=== PATIENT | male | born 1975 | race Caucasian/White ===

== ENCOUNTER 2020-12-01 22:46 | Emergency (ER) | payer BC ==
[~2020-12-01] VITALS: Ht 182.9 cm; Wt 81.8 kg
[2020-12-02] MEDS ORDERED: ketorolac trometh. 30mg/ml inj. IM ONE (00:05)
[2020-12-02] MEDS ORDERED: normal saline 1000ml 1,000 ML IV ONE (00:35)
[2020-12-02] MEDS ORDERED: proCHLORperazine 10 MG/2 ml inj IV ONE (00:35)
[2020-12-02] MEDS ORDERED: diphenhydrAMINE 50 mg/ml inj IV ONE (00:35)
[2020-12-02 01:26] LABS: ALBUMIN 3.1 G/DL (3.4-5.0); ANION GAP 7 (8-16); BLOOD UREA NITROGEN 6 MG/DL (7-18); BUN/CREATININE RATIO 6.7 (5.4-32.0); CALCIUM 7.6 MG/DL (8.5-10.1); CHLORIDE 98 MMOL/L (99-107); GLUCOSE 104 MG/DL (70-104); POTASSIUM 3.7 MMOL/L (3.5-5.1); SODIUM 133 MMOL/L (135-145); TOTAL CARBON DIOXIDE 27.9 MMOL/L (24-32); eGFR 90 ML/MIN
[2020-12-02 01:34] LABS: BASOPHILS % (AUTO) 0.3 % (0-1); EOSINOPHILS % (AUTO) 0 % (0-6); HEMATOCRIT 41.3 % (42.0-52.0); HEMOGLOBIN 14.6 g/dl (14.0-17.9); LYMPHOCYTES # (AUTO) 0.4 X10'3 (1.1-4.8); LYMPHOCYTES % (AUTO) 7.6 % (21-51); MEAN CORPUSCULAR HEMOGLOBIN 30.1 PG (27.0-31.0); MEAN CORPUSCULAR HGB CONC 35.3 g/dL (33.0-36.5); MEAN CORPUSCULAR VOLUME 85.2 FL (78-98); MEAN PLATELET VOLUME 8.5 FL (7.4-10.4); MONOCYTES # (AUTO) 0.4 X10'3 (0-0.9); MONOCYTES % (AUTO) 6.7 % (2-12); NEUTROPHILS # (AUTO) 4.7 X10'3 (1.8-7.7); NEUTROPHILS % (AUTO) 85.4 % (42-75); PLATELET COUNT 134 X10'3 (140-440); RED BLOOD COUNT 4.84 X10'6 (4.70-6.10); RED CELL DISTRIBUTION WIDTH 12.9 % (11.5-14.5); WHITE BLOOD COUNT 5.5 X10'3 (4.5-11.0)
[2020-12-02] MEDS ORDERED: PROC-8 PO ×2 (01:55)
[2020-12-02 02:05] VITALS: BP 118/76
--- NOTE | 2020-12-02 02:05 | NUR ---
patients states he feels alot better, fever down to 99.1. patient was given dc instructions and rx instructions and acknowledged understanding. patient dc home with family.
[2020-12-03] MEDS ORDERED: NO HOME MEDS (15:08)
[2020-12-03] MEDS ORDERED: PROC10TA10 PO (15:12)
== END 2020-12-02 02:06 | disposition home or self-care (01) ==
LOC: ER 22:48
DX: U07.1 COVID-19 (principal); R11.2 Nausea with vomiting, unspecified; R45.851 Suicidal ideations; F32.9 Major depressive disorder, single episode, unspecified
CPT/HCPCS: 36415; 71045; 80048; 85025; 87635; 96372; 96374; 96375; 99284; C9803; J0780; J1200; J1885; J7030

== ENCOUNTER 2020-12-03 11:45 | Inpatient (IN) | payer BC ==
[~2020-12-03] VITALS: Ht 182.9 cm; Wt 81.8 kg
[~2020-12-03 11:45] MED LIST: PROC-8 PO
[2020-12-03] MEDS ORDERED: dexamethasone sod phosphate 10mg/ml inj IV STA (12:32)
[2020-12-03] MEDS ORDERED: normal saline 1000ml 1,000 ML IV ONE (12:35)
[2020-12-03] MEDS ORDERED: REMDESIVIR (EUA) 100mg inj. 200 MG in normal saline 100ml IV soln 60 ML IV ONE (12:50)
[2020-12-03 13:09] LABS: BASOPHILS % (AUTO) 0.1 % (0-1); EOSINOPHILS % (AUTO) 0 % (0-6); HEMATOCRIT 40.9 % (42.0-52.0); HEMOGLOBIN 14.4 g/dl (14.0-17.9); LYMPHOCYTES # (AUTO) 0.3 X10'3 (1.1-4.8); LYMPHOCYTES % (AUTO) 3.8 % (21-51); MEAN CORPUSCULAR HEMOGLOBIN 30.1 PG (27.0-31.0); MEAN CORPUSCULAR HGB CONC 35.2 g/dL (33.0-36.5); MEAN CORPUSCULAR VOLUME 85.5 FL (78-98); MEAN PLATELET VOLUME 7.8 FL (7.4-10.4); MONOCYTES # (AUTO) 0.3 X10'3 (0-0.9); MONOCYTES % (AUTO) 3.3 % (2-12); NEUTROPHILS # (AUTO) 7.5 X10'3 (1.8-7.7); NEUTROPHILS % (AUTO) 92.8 % (42-75); PLATELET COUNT 147 X10'3 (140-440); RED BLOOD COUNT 4.78 X10'6 (4.70-6.10); RED CELL DISTRIBUTION WIDTH 12.9 % (11.5-14.5); WHITE BLOOD COUNT 8.1 X10'3 (4.5-11.0)
[2020-12-03 13:18] LABS: ALANINE AMINOTRANSFERASE 14 U/L (12-78); ALBUMIN 2.9 G/DL (3.4-5.0); ALBUMIN/GLOBULIN RATIO 0.9 (1.1-1.5); ALKALINE PHOSPHATASE 75 IU/L (46-116); ANION GAP 8 (8-16); ASPARTATE AMINO TRANSFERASE 24 U/L (10-37); BILIRUBIN,TOTAL 0.6 MG/DL (0.1-1.0); BLOOD UREA NITROGEN 9 MG/DL (7-18); BUN/CREATININE RATIO 9.4 (5.4-32.0); C-REACTIVE PROTEIN 17.15 MG/DL (0.0-0.5); CALCIUM 7.8 MG/DL (8.5-10.1); CHLORIDE 104 MMOL/L (99-107); CREATININE 0.96 MG/DL (0.60-1.10); GLUCOSE 117 MG/DL (70-104); LACTATE DEHYDROGENASE 308 U/L (85-227); MAGNESIUM 2.1 MG/DL (1.5-2.4); POTASSIUM 3.6 MMOL/L (3.5-5.1); SODIUM 139 MMOL/L (135-145); TOTAL PROTEIN 6.1 G/DL (6.4-8.2); eGFR 84 ML/MIN
[2020-12-03] MEDS ORDERED: magnesium hydroxide 30ml (MOM) UD suspension PO PRN (15:00)
[2020-12-03] MEDS ORDERED: mag hydrox/Alum hydrox/simeth 30ml oral suspension PO PRN (15:00)
[2020-12-03] MEDS ORDERED: acetaminophen 325mg tablet PO PRN (15:00)
[2020-12-03] MEDS ORDERED: ondansetron/PF 4mg/2ml inj IV PRN (15:00)
[2020-12-03] MEDS ORDERED: NO HOME MEDS (15:08)
[2020-12-03] MEDS ORDERED: PROC10TA10 PO (15:12)
[2020-12-03] MEDS: normal saline 1000ml 1,000 ML IV SCH (16:00)
[2020-12-03 16:30] LABS: CLARITY,URINE SLIGHTLY CLOUDY (Clear); COLOR,URINE YELLOW (Yellow); GLUCOSE, URINE NEGATIVE (Neg); KETONES,URINE 40 mg/dl (Neg); LEUKOCYTE ESTERASE ,URINE NEGATIVE (Neg); NITRITES, URINE NEGATIVE (Neg); OCCULT BLOOD,URINE NEGATIVE (Neg); PROTEIN,URINE 100 mg/dl (Neg); UROBILINOGEN,URINE >=8.0 E.U/dL (0.2-1.0)
[2020-12-03 16:35] LABS: UA COLLECTION TYPE URINAL
[2020-12-03 16:40] LABS: MUCUS STRANDS FEW /LPF (Neg); SQUAMOUS EPITHELIAL CELL,UR FEW /LPF (FEW)
[2020-12-03 16:42] LABS: BACTERIA,URINE FEW /HPF (Neg); RBC,URINE 0-2 /HPF (0-2); WBC,URINE 0-4 /HPF (0-4)
[2020-12-03] MEDS ORDERED: proCHLORperazine 10mg tablet PO PRN (16:45)
[2020-12-03] MEDS: dexamethasone inj 6 MG in normal saline 50ml IV soln 50 ML IV SCH (19:13)
[2020-12-03] MEDS: docusate sod 100mg capsule PO SCH (19:16)
[2020-12-03] MEDS: enoxaparin 30mg/0.3ml syringe SQ SCH (19:16)
--- NOTE | 2020-12-04 00:36 | NUR ---
ear plugs, and a snack provided at this time, patient vs wnl, patient has no further needs, will monitor.
[2020-12-04] MEDS: normal saline 1000ml 1,000 ML IV SCH ×4 (01:00→20:20)
[2020-12-04] MEDS: REMDESIVIR 100 MG in NS 100ml IVPB IV SCH (08:00)
[2020-12-04 08:45] LABS: BASOPHILS % (AUTO) 0.2 % (0-1); EOSINOPHILS % (AUTO) 0 % (0-6); HEMATOCRIT 40.4 % (42.0-52.0); HEMOGLOBIN 13.8 g/dl (14.0-17.9); LYMPHOCYTES # (AUTO) 0.4 X10'3 (1.1-4.8); LYMPHOCYTES % (AUTO) 4.9 % (21-51); MEAN CORPUSCULAR HEMOGLOBIN 30.1 PG (27.0-31.0); MEAN CORPUSCULAR HGB CONC 34.1 g/dL (33.0-36.5); MEAN CORPUSCULAR VOLUME 88.3 FL (78-98); MEAN PLATELET VOLUME 7.8 FL (7.4-10.4); MONOCYTES # (AUTO) 0.5 X10'3 (0-0.9); MONOCYTES % (AUTO) 7.2 % (2-12); NEUTROPHILS # (AUTO) 6.6 X10'3 (1.8-7.7); NEUTROPHILS % (AUTO) 87.7 % (42-75); PLATELET COUNT 151 X10'3 (140-440); RED BLOOD COUNT 4.57 X10'6 (4.70-6.10); WHITE BLOOD COUNT 7.5 X10'3 (4.5-11.0)
[2020-12-04 08:56] LABS: ALBUMIN 2.6 G/DL (3.4-5.0); ANION GAP 11 (8-16); BLOOD UREA NITROGEN 11 MG/DL (7-18); BUN/CREATININE RATIO 14.3 (5.4-32.0); CALCIUM 7.5 MG/DL (8.5-10.1); CHLORIDE 105 MMOL/L (99-107); CREATININE 0.77 MG/DL (0.60-1.10); GLUCOSE 133 MG/DL (70-104); SODIUM 141 MMOL/L (135-145); TOTAL CARBON DIOXIDE 25.5 MMOL/L (24-32); eGFR > 90 ML/MIN
[2020-12-04] MEDS: dexamethasone inj 6 MG in normal saline 50ml IV soln 50 ML IV SCH ×2 (09:28→20:59)
[2020-12-04] MEDS: enoxaparin 30mg/0.3ml syringe SQ SCH ×2 (09:30→20:59)
[2020-12-04] MEDS: docusate sod 100mg capsule PO SCH ×2 (09:30→20:59)
[2020-12-04 11:11] VITALS: BP 113/61
[2020-12-04 12:14] LABS: D-DIMER 1.29 MG/L FEU (0-0.50)
[2020-12-04] MEDS: PARoxetine 20mg tablet PO SCH (12:23)
--- NOTE | 2020-12-04 18:04 | NUR ---
Patient in room [facility]. I have received report from Melva FAIRCHILD and had the opportunity to ask questions and assume patient care.
--- NOTE | 2020-12-04 18:45 | NUR ---
REPORT GIVEN TO CRISTA PT DOING WELL IN ROOM. NO CURRENT NEEDS AT CHANGE OF SHIFT. STILL ON 3L, BREATHING WELL
[2020-12-04 21:00] VITALS: BP 132/73
--- NOTE | 2020-12-04 22:08 | NUR ---
promotional table spacer PAGER ID: [phone] MESSAGE: New covid pt.Elise Hanley has low HR of 39, was 55 earlier today. All other VS ok. Pt. stated that he kept setting of the heart monitor alrms last night. Please call Anca [phone] ([phone] character message out of a maximum [phone]) Close [X] Addendum: 12/05/20 at 0632 by Anca Thomas RN stated "no new orders, continue to monitor. HR at midnight 57.
[2020-12-05 01:00] VITALS: BP 114/57
[2020-12-05 05:52] LABS: BASOPHILS % (AUTO) 0.2 % (0-1); EOSINOPHILS % (AUTO) 0 % (0-6); HEMATOCRIT 38.5 % (42.0-52.0); HEMOGLOBIN 13.3 g/dl (14.0-17.9); LYMPHOCYTES # (AUTO) 0.4 X10'3 (1.1-4.8); LYMPHOCYTES % (AUTO) 4.5 % (21-51); MEAN CORPUSCULAR HEMOGLOBIN 29.8 PG (27.0-31.0); MEAN CORPUSCULAR HGB CONC 34.5 g/dL (33.0-36.5); MEAN CORPUSCULAR VOLUME 86.5 FL (78-98); MEAN PLATELET VOLUME 8.8 FL (7.4-10.4); MONOCYTES # (AUTO) 0.7 X10'3 (0-0.9); MONOCYTES % (AUTO) 7.5 % (2-12); NEUTROPHILS # (AUTO) 8.2 X10'3 (1.8-7.7); NEUTROPHILS % (AUTO) 87.8 % (42-75); PLATELET COUNT 190 X10'3 (140-440); RED BLOOD COUNT 4.45 X10'6 (4.70-6.10); WHITE BLOOD COUNT 9.4 X10'3 (4.5-11.0)
[2020-12-05 05:57] LABS: ALBUMIN 2.4 G/DL (3.4-5.0); ANION GAP 8 (8-16); BLOOD UREA NITROGEN 13 MG/DL (7-18); BUN/CREATININE RATIO 16.9 (5.4-32.0); CALCIUM 7.4 MG/DL (8.5-10.1); CHLORIDE 108 MMOL/L (99-107); CREATININE 0.77 MG/DL (0.60-1.10); GLUCOSE 148 MG/DL (70-104); SODIUM 141 MMOL/L (135-145); TOTAL CARBON DIOXIDE 24.9 MMOL/L (24-32); eGFR > 90 ML/MIN
--- NOTE | 2020-12-05 06:10 | NUR ---
Problems reprioritized. Patient report given, questions answered & plan of care reviewed with Melva FAIRCHILD.
[2020-12-05 08:00] VITALS: BP 122/70
[2020-12-05] MEDS: docusate sod 100mg capsule PO SCH ×2 (08:04→21:02)
[2020-12-05] MEDS: PARoxetine 20mg tablet PO SCH (08:04)
[2020-12-05] MEDS: dexamethasone inj 6 MG in normal saline 50ml IV soln 50 ML IV SCH ×2 (08:05→21:03)
[2020-12-05] MEDS: enoxaparin 30mg/0.3ml syringe SQ SCH ×2 (08:05→21:02)
[2020-12-05] MEDS: REMDESIVIR 100 MG in NS 100ml IVPB IV SCH (08:24)
[2020-12-05] MEDS ORDERED: iohexol 350MG/ML 100ml bottle IV ONE (10:57)
[2020-12-05 12:00] VITALS: BP 127/62
[2020-12-05] MEDS: normal saline 1000ml 1,000 ML IV SCH (17:46)
--- NOTE | 2020-12-05 18:18 | NUR ---
Patient in room [facility]. I have received report from Melva FAIRCHILD and had the opportunity to ask questions and assume patient care.
--- NOTE | 2020-12-05 18:30 | NUR ---
Report given to Anca Woods who will resume care. Pt doing well, in room on phone, eating dinner, no current concerns.
[2020-12-05 19:15] VITALS: BP 137/47
[2020-12-06] MEDS: normal saline 1000ml 1,000 ML IV SCH (01:03)
[2020-12-06 01:07] VITALS: BP 132/71
[2020-12-06 05:42] LABS: D-DIMER 0.59 MG/L FEU (0-0.50)
[2020-12-06 05:45] LABS: BASOPHILS % (AUTO) 0.1 % (0-1); EOSINOPHILS % (AUTO) 0 % (0-6); HEMATOCRIT 39.3 % (42.0-52.0); HEMOGLOBIN 13.2 g/dl (14.0-17.9); LYMPHOCYTES # (AUTO) 0.5 X10'3 (1.1-4.8); LYMPHOCYTES % (AUTO) 5.5 % (21-51); MEAN CORPUSCULAR HEMOGLOBIN 29.6 PG (27.0-31.0); MEAN CORPUSCULAR HGB CONC 33.7 g/dL (33.0-36.5); MEAN CORPUSCULAR VOLUME 87.8 FL (78-98); MEAN PLATELET VOLUME 8.5 FL (7.4-10.4); MONOCYTES # (AUTO) 0.7 X10'3 (0-0.9); MONOCYTES % (AUTO) 7.5 % (2-12); NEUTROPHILS # (AUTO) 8.3 X10'3 (1.8-7.7); NEUTROPHILS % (AUTO) 86.9 % (42-75); PLATELET COUNT 245 X10'3 (140-440); RED BLOOD COUNT 4.47 X10'6 (4.70-6.10); RED CELL DISTRIBUTION WIDTH 13.4 % (11.5-14.5); WHITE BLOOD COUNT 9.6 X10'3 (4.5-11.0)
[2020-12-06 05:49] LABS: ALBUMIN 2.5 G/DL (3.4-5.0); ANION GAP 9 (8-16); BLOOD UREA NITROGEN 14 MG/DL (7-18); BUN/CREATININE RATIO 16.9 (5.4-32.0); C-REACTIVE PROTEIN 3.06 MG/DL (0.0-0.5); CALCIUM 7.6 MG/DL (8.5-10.1); CHLORIDE 108 MMOL/L (99-107); CREATININE 0.83 MG/DL (0.60-1.10); GLUCOSE 157 MG/DL (70-104); POTASSIUM 4.3 MMOL/L (3.5-5.1); SODIUM 141 MMOL/L (135-145); TOTAL CARBON DIOXIDE 24.2 MMOL/L (24-32); eGFR > 90 ML/MIN
--- NOTE | 2020-12-06 06:30 | NUR ---
Problems reprioritized. Patient report given, questions answered & plan of care reviewed with Sharon FAIRCHILD.
--- NOTE | 2020-12-06 07:00 | NUR ---
Patient in room [facility]. I have received report from Chuck March and had the opportunity to ask questions and assume patient care.
[2020-12-06] MEDS: dexamethasone inj 6 MG in normal saline 50ml IV soln 50 ML IV SCH (09:24)
[2020-12-06] MEDS: PARoxetine 20mg tablet PO SCH (09:24)
[2020-12-06] MEDS: REMDESIVIR 100 MG in NS 100ml IVPB IV SCH (09:24)
[2020-12-06] MEDS: docusate sod 100mg capsule PO SCH ×2 (09:24→20:44)
[2020-12-06] MEDS: enoxaparin 30mg/0.3ml syringe SQ SCH (09:25)
--- NOTE | 2020-12-06 09:43 | NUR ---
Malnutrition consult: Pt reports 2-13 lb wt loss with decreased appetite per malnutrition risk screen with RN. No wt hx in EMR though current documented wt is appropriate and 101% IBW. Pt on a regular diet and eating well with 75-100% PO intake throughout LOS. Pt with no documented decrease in muscle strength or edema. Although pt may have experienced some changes in appetite/PO intake [employer] r/t SOB and loss of taste and smell secondary to COVID, pt currently lacks a minimum of two criteria for malnutrition. Will continue to follow. Addendum: 12/06/20 at [address] Amended: Links added.
[2020-12-06] MEDS ORDERED: chlorproMAZINE 25mg tablet PO PRN (10:05)
--- NOTE | 2020-12-06 12:00 | NUR ---
Called to get report. Resource RN informed me the nurse went to lunch and they would call back to give report once nurse gets back from lunch
--- NOTE | 2020-12-06 12:49 | NUR ---
Patient in room [facility]. I have received report from Sharon FAIRCHILD and had the opportunity to ask questions and assume patient care.
--- NOTE | 2020-12-06 13:15 | NUR ---
Problems reprioritized. Patient report given, questions answered & plan of care reviewed with DEVORAH Garcia. Pt transferd with all belongings meds and chart to Covid unit bed 7A.
[2020-12-06 14:00] VITALS: BP 144/75
[2020-12-06 16:06] VITALS: BP 132/68
[2020-12-06 18:00] VITALS: BP 115/80
--- NOTE | 2020-12-06 18:00 | NUR ---
Patient in room COVID 07. I have received report from yessica jimenez and had the opportunity to ask questions and assume patient care.
--- NOTE | 2020-12-06 18:37 | NUR ---
Problems reprioritized. Patient report given, questions answered & plan of care reviewed with Hazel RN at bedside.
[2020-12-06] MEDS: dexamethasone inj 4 MG in normal saline 50ml IV soln 50 ML IV SCH (20:46)
[2020-12-06 22:00] VITALS: BP 125/89
--- NOTE | 2020-12-07 00:11 | NUR ---
patient stable, anticipating discharge, medication education reviewed with patient,. patient verbalizes understanding. deep breathing exercises reviewed with patient.; patient returns demonstration.
[2020-12-07] MEDS: docusate sod 100mg capsule PO SCH (08:00)
[2020-12-07] MEDS ORDERED: enoxaparin 30mg/0.3ml syringe SQ SCH (08:00)
[2020-12-07 08:15] LABS: BASOPHILS % (AUTO) 0.1 % (0-1); EOSINOPHILS % (AUTO) 0 % (0-6); HEMATOCRIT 40.2 % (42.0-52.0); LYMPHOCYTES % (AUTO) 9.8 % (21-51); MEAN CORPUSCULAR HEMOGLOBIN 29.7 PG (27.0-31.0); MEAN CORPUSCULAR HGB CONC 34.7 g/dL (33.0-36.5); MEAN CORPUSCULAR VOLUME 85.6 FL (78-98); MEAN PLATELET VOLUME 8.2 FL (7.4-10.4); MONOCYTES # (AUTO) 1.3 X10'3 (0-0.9); MONOCYTES % (AUTO) 13.5 % (2-12); NEUTROPHILS # (AUTO) 7.5 X10'3 (1.8-7.7); NEUTROPHILS % (AUTO) 76.6 % (42-75); PLATELET COUNT 259 X10'3 (140-440); RED BLOOD COUNT 4.69 X10'6 (4.70-6.10); RED CELL DISTRIBUTION WIDTH 13.4 % (11.5-14.5); WHITE BLOOD COUNT 9.8 X10'3 (4.5-11.0)
[2020-12-07 08:32] LABS: ALBUMIN 2.4 G/DL (3.4-5.0); ANION GAP 7 (8-16); BLOOD UREA NITROGEN 11 MG/DL (7-18); BUN/CREATININE RATIO 13.8 (5.4-32.0); C-REACTIVE PROTEIN 1.66 MG/DL (0.0-0.5); CALCIUM 7.4 MG/DL (8.5-10.1); CHLORIDE 106 MMOL/L (99-107); GLUCOSE 112 MG/DL (70-104); SODIUM 139 MMOL/L (135-145); TOTAL CARBON DIOXIDE 26.4 MMOL/L (24-32); eGFR > 90 ML/MIN
[2020-12-07 08:44] LABS: D-DIMER 1.02 MG/L FEU (0-0.50)
[2020-12-07] MEDS: dexamethasone inj 4 MG in normal saline 50ml IV soln 50 ML IV SCH (09:16)
[2020-12-07] MEDS: PARoxetine 20mg tablet PO SCH (09:18)
[2020-12-07] MEDS ORDERED: enoxaparin 40mg/0.4ml syringe SQ SCH (09:23)
[2020-12-07 09:39] LABS: TOTAL CELLS COUNTED 100
[2020-12-07 09:40] LABS: BURR CELLS FEW; ELLIPTOCYTES FEW; PLATELET ESTIMATE NORMAL; POIKILOCYTOSIS 1+; SCHISTOCYTES FEW
[2020-12-07] MEDS: REMDESIVIR 100 MG in NS 100ml IVPB IV SCH (09:44)
--- NOTE | 2020-12-07 10:02 | NUR ---
O2 Sat at rest on room air:__94_% If below 89%: Recovery O2 Sat at rest on ___LPM:___%:___% via (mask/nasal cannula, etc..) No further documentation is necessary. If O2 Sat did not drop below 89% on room air,ambulate patient on room air. O2 Sat while ambulating on room air:_88__% Recovery O2 Sat while ambulating on _2__LPM:_94__% No further documentation is necessary. If patient does not drop below 89% while ambulating, he/she does not qualify for home O2.
--- NOTE | 2020-12-07 10:24 | NUR ---
Initial: Pt admitted w/ +Covid. Per EMR, pt able to eat well, avg 75-100% of most meals on Regular diet. Pt is complaining of hiccups. No N/V/D reported, LBM 12/05. No nutritional diagnosis at this time, will continue to monitor. Recs: 1. Continue Regular diet as tolerated 2. Bowel care per rx 3. Weekly wts Addendum: 12/07/20 at [address] Amended: Links added.
[2020-12-07] MEDS ORDERED: DEC4T PO (11:24)
[2020-12-07] MEDS ORDERED: ASPI81TA30 PO (11:24)
--- NOTE | 2020-12-07 11:27 | NUR ---
Oxygen delivered to pt. by Sandor.
--- NOTE | 2020-12-07 11:46 | NUR ---
COVID information and ewritten education on home oxygen use provided to pt in written format.
[2020-12-07 11:50] VITALS: BP 127/77
--- NOTE | 2020-12-07 12:24 | NUR ---
Reviewed discharge paperwork with pt. He has had the opportunity to ask questions. Educated verbally on home oxygen use and risk of it being flammable. Pt. states told him to walk/run 1-2 miles on treadmill a day. Advised to wear his 02 while doing this and to not push himself if feeling weak. pt. is aware he needs to remain on isolation until 12/12 as he tested positive on the . pt. knows to f/u with PCP immediately after isolation period or to return to ER if any complication before that time. Discussed home isolation and infection control techniques. Discussed discharge medication and possible ASE. Pt knows to p/u at preferred pharmacy. IV DC'd, cannula intact, no s/sx bleeding pressure bandage applied. Pt. escorted outside with a mask, his home 02, discharge information and belongings by [facility] unit charge coordinator to wait outside for his ride home.
== END 2020-12-07 12:25 | disposition home or self-care (01) | DRG 177 ==
LOC: ER 11:46 → ED HOLD 15:03 → OBSVTOIN 15:03 → EDBEDREQ 12-04 09:51 → SUR 3N 12-04 10:30 → COVID IP 12-06 13:15
PROVIDERS: ADMIT Family Medicine; ATTEND Family Medicine
PROC: XW033E5 Introduction of Remdesivir Anti-infective into Peripheral Vein, Percutaneous Approach, New Technology Group 5 (ICD-10-PCS; principal; 2020-12-03)
PROC: B32T1ZZ Computerized Tomography (CT Scan) of Left Pulmonary Artery using Low Osmolar Contrast (ICD-10-PCS; 2020-12-05)
PROC: B3201ZZ Computerized Tomography (CT Scan) of Thoracic Aorta using Low Osmolar Contrast (ICD-10-PCS; 2020-12-05)
PROC: B32S1ZZ Computerized Tomography (CT Scan) of Right Pulmonary Artery using Low Osmolar Contrast (ICD-10-PCS; 2020-12-05)
DX: U07.1 COVID-19 (principal); J12.82 Pneumonia due to coronavirus disease 2019; J96.01 Acute respiratory failure with hypoxia; K92.1 Melena; R04.2 Hemoptysis; F32.9 Major depressive disorder, single episode, unspecified; K64.9 Unspecified hemorrhoids; Z87.891 Personal history of nicotine dependence; Z59.0 Homelessness; Z56.0 Unemployment, unspecified; Z79.899 Other long term (current) drug therapy
CPT/HCPCS: 36415; 71045; 71275; 80048; 80053; 81001; 83605; 83615; 83735; 84145; 85007; 85025; 85379; 85384; 86140; 87040; 87081; 93005; 99285; G0378; J1100; J1650; J7030; Q9967

== ENCOUNTER 2020-12-15 06:41 | Emergency (ER) | payer BC ==
[~2020-12-15] VITALS: Ht 182.9 cm; Wt 84.1 kg
[~2020-12-15 06:41] MED LIST changes: +ASPI81TA30 PO; +DEC4T PO; -PROC-8 PO; +PROC10TA10 PO
[2020-12-15 06:45] VITALS: BP 86/53
== END 2020-12-15 09:30 | disposition home or self-care (01) ==
LOC: ER 06:43
DX: I82.890 Acute embolism and thrombosis of other specified veins (principal); M79.631 Pain in right forearm; F32.9 Major depressive disorder, single episode, unspecified; Z56.0 Unemployment, unspecified; Z59.0 Homelessness; Z79.82 Long term (current) use of aspirin; Z79.899 Other long term (current) drug therapy
CPT/HCPCS: 93971; 99284